=== PATIENT | female | born 1970 | race Caucasian/White ===

== ENCOUNTER 2016-11-08 15:45 | Emergency (ER) | payer MEDICAID ==
[~2016-11-08] VITALS: Ht 157.5 cm; Wt 52.0 kg
[~2016-11-08 15:45] MED LIST: LOPE2CAP PO; ONDA4TAB8 PO
[2016-11-08 15:48] VITALS: Ht 157.5 cm; Wt 52.0 kg
[2016-11-08] MEDS ORDERED: KETOROLAC 30 MG INJ IM STA (16:50)
[2016-11-08] MEDS ORDERED: CARI350T PO (16:56)
[2016-11-08] MEDS ORDERED: NAPR-260 PO (16:56)
--- NOTE | 2016-11-08 18:03 | ERD ---
ER Documentation Chief Complaint Date/Time DATE: 11/08/16 TIME: 18:01 Chief Complaint Complains of back pain since last night HPI 46-year-old woman complaining of severe low back pain bilaterally worse on the left compared to the right, pain on the left radiates down her left buttock and leg. She states she has had these symptoms for about 20 years and was once told she has sciatica. She has been using ibuprofen without relief. Patient denies history of cancer or recent weight loss, no tuberculosis or chronic glucocorticoid use, no chest pain or shortness of breath, no headache or blurry vision. Patient denies dysuria, fevers or chills, or abdominal pain. ROS All systems reviewed and are negative except as per history of present illness. Medications Home Meds Active Scripts Naproxen* (Naprosyn*) 500 Mg Tablet, 500 MG PO BID Y for PAIN AND/OR INFLAMMATION, #30 TAB Prov:RHONDA GILLIS MD 11/08/16 Carisoprodol* (Soma*) 350 Mg Tablet, 350 MG PO TID Y for MUSCLE SPASMS, #15 TAB Prov:RHONDA GILLIS MD 11/08/16 Loperamide Hcl* (Imodium*) 2 Mg Capsule, 2 MG PO .AFTER EA LOOSE BM Y for DIARRHEA, #10 TAB Prov:Anabel Hernandes PA-C 08/12/16 Ondansetron Hcl* (Zofran*) 4 Mg Tablet, 4 MG PO Q6H for NAUSEA AND/OR VOMITING, #30 TAB Prov:Anabel Hernandes PA-C 08/12/16 Allergies Allergies: Coded Allergies: No Known Allergy (Unverified , 08/12/16) PMhx/Soc Chronic back pain Medical and Surgical Hx: pt denies Medical Hx, pt denies Surgical Hx History of Surgery: No Anesthesia Reaction: No Hx Neurological Disorder: No Hx Respiratory Disorders: No Hx Cardiac Disorders: No Hx Psychiatric Problems: No Hx Miscellaneous Medical Probl: No Hx Alcohol Use: No Hx Substance Use: No Hx Tobacco Use: No FmHx Family History: No diabetes Physical Exam Vitals Vital Signs Date Time Temp Pulse Resp B/P Pulse Ox O2 Delivery O2 Flow Rate FiO2 11/08/16 15:48 98.3 82 20 101/55 98 Physical Exam GENERAL: Well-developed, well-nourished, well-hydrated, in no apparent distress , looks nontoxic in appearance HEENT: Moist mucous membranes, pink conjunctiva, no cervical spine tenderness or step-off deformities, no goiter, no jaundice or icterus, extraocular movements intact without pain. No submandibular induration, and no pharyngeal erythema NEURO: Alert and oriented 3, cranial nerves II through XII intact bilaterally, pupils equal round reactive to light, no focal deficits or facial asymmetry, sensation intact distally Strength 5/5 in upper and lower extremities bilaterally CARDIAC: Regular rate and rhythm, no murmurs rubs or gallops LUNGS: Clear bilaterally no wheezing crackles or stridor ABDOMEN: Soft nontender, no guarding, no rigidity, no rebound, no psoas sign no obturator sign. Normoactive bowel sounds SKIN: Warm and dry to touch, no abrasions, contusions, or hematomas, no lacerations, no ecchymosis, no target lesions, and without ulcers EXTREMITIES: No clubbing cyanosis or edema, calves are bilaterally symmetrical, no Homans sign, no popliteal cord sign. Distal pulses equal and bilateral PSYCH: Normal affect without agitation or irritability Results 24 hrs Current Medications Medications (Trade) Dose Ordered Sig/Guille Route PRN Reason Start Time Stop Time Status Last Admin Dose Admin Ketorolac Tromethamine (Toradol) 30 mg ONCE STAT IM 11/08/16 16:50 11/08/16 16:52 DC 11/08/16 17:03 Procedures/MDM I administered Toradol 30 mg intramuscular injection with good relief. X-ray LS-Spine 3V Interpreted by me: Bones: No fracture Joints: No dislocation Foreign body: None Differential diagnoses considered, included but not limited to acute coronary syndrome, pulmonary embolism, aortic dissection, abdominal aortic aneurysm, sepsis, stroke, meningitis, encephalitis, pneumonia, appendicitis, cholecystitis , bowel obstruction, pyelonephritis, nephrolithiasis, cystitis, as well as metabolic, hematologic, and electrolyte abnormalities. As well as abscess, cellulitis, fractures, and dislocations. Patient feels much better at this time, and vital signs are normal, symptoms have improved. I did give strict instructions to return to the ED if symptoms continue or worsen, patient will otherwise follow-up with primary care physician. Patient understood instructions and agreed to plan. Departure Diagnosis: Primary Impression: Back pain Back pain location: low back pain Chronicity: acute Back pain laterality: bilateral Sciatica presence: with sciatica Sciatica laterality: sciatica of left side Qualified Code: M54.42 - Acute bilateral low back pain with left- sided sciatica Condition: Good Patient Instructions: Back Pain W/ Sciatica RHONDA GILLIS MD Nov 08, 2016 18:03
--- NOTE | 2016-11-08 18:15 | RADRPT ---
PROCEDURE: XR Lumbar Spine. CLINICAL INDICATION: Lumbar spine pain. TECHNIQUE: AP, lateral, and cone-down lateral view of the lumbar spine were obtained. COMPARISON: No prior studies are available for comparison. FINDINGS: The alignment of the lumbar spine is within normal limits. The vertebral body heights and marrow de nsity are normal in appearance. There is preservation of the intervertebral disc spaces. There is mild facet spondylosis at L5-S1. The neural foramina appear patent. The paraspinal soft tissues un remarkable. The posterior elements are unremarkable. IMPRESSION: 1. Mild facet spondylosis at L5-S1 without significant neural foraminal narrowing. 2. Otherwise, normal radiographs of the lumbar spine. No evidence of fracture or significant degen erative disc disease. RPTAT: DD .Dustin Martino MD, Date Time Electronically viewed and signed by .Dustin Martino MD, on 11/08/2016 18:15 .S/
[2016-11-08 18:18] VITALS: TEMP 98.2
== END 2016-11-08 18:19 | disposition home or self-care (01) ==
LOC: FTE 15:45
DX: M54.42 Lumbago with sciatica, left side (principal); M54.41 Lumbago with sciatica, right side
CPT/HCPCS: 72100; 96372; J1885; Z7502

== ENCOUNTER 2017-03-28 15:14 | Emergency (ER) | payer MEDICAID, OTHER ==
[~2017-03-28] VITALS: Ht 157.5 cm; Wt 52.5 kg
[~2017-03-28 15:14] MED LIST changes: +CARI350T PO; +NAPR-260 PO
[2017-03-28 15:17] VITALS: Ht 157.5 cm; Wt 52.5 kg
[2017-03-28] MEDS ORDERED: KETOROLAC 60 MG INJ IM STA (16:20)
[2017-03-28] MEDS ORDERED: MECLIZINE 12.5 MG TAB PO ONE (16:30)
--- NOTE | 2017-03-28 17:06 | RADRPT ---
PROCEDURE: CT Brain without contrast. CLINICAL INDICATION: Headache. TECHNIQUE: A CT of the brain was performed on a [employer] 64-slice CT scanner utilizing axial imaging from the skull base through the vertex without IV contrast. Multiplanar reformatted images were made. Images were reviewed on a PACS workstation. The CTDIvol is 44.11 mGy and the DLP is 630 .2 mGycm. One or the following dose reduction techniques were used: -Automated exposure control. -Adjustment of the mA and/or KV according to patient's size. -Use of iterative reconstruction technique. COMPARISON: None FINDINGS: There is no intracranial hemorrhage, mass effect, or midline shift. No extra-axial fluid collection is seen. The ventricles and sulci are normal in size and configuration. The density of the brain is normal, and the chand white matter differentiation appears well-preserved. The visualized paranasal sinuses and osseous structures are grossly unremarkable. IMPRESSION: 1. No acute intracranial process identified. RPTAT: [facility] Physician Antonio Date Time Electronically viewed and signed by Physician Antonio on 03/28/2017 17:05 KEISHA/
[2017-03-28] MEDS ORDERED: IBUP-1542 PO (17:31)
[2017-03-28] MEDS ORDERED: MECL12.574 PO (17:35)
[2017-03-28] MEDS ORDERED: ONDA4TAB14 PO (17:35)
--- NOTE | 2017-03-28 18:14 | ERD ---
ER Documentation Chief Complaint Date/Time DATE: 03/28/17 TIME: 17:59 Chief Complaint Complains of a headche x 3 days HPI 47-year-old female complaining a headache since midnight. Pain is all over her head. Patient is unable to describe the quality of the pain. Patient reports feeling weak and dizzy. Described dizziness as a spinning-like sensation, worse with head movement. Denies fever or chills. Denies photophobia or phonophobia. Denies blurry vision or tinnitus. Denies head trauma. Denies muscle weakness or numbness. ROS All systems reviewed and are negative except as per history of present illness. Medications Home Meds Active Scripts Ondansetron (Ondansetron Odt) 4 Mg Tab.rapdis, 4 MG PO Q6H Y for NAUSEA AND/OR VOMITING, #10 TAB Prov:SAMI CUNNINGHAM NP 03/28/17 Meclizine Hcl* (Antivert*) 12.5 Mg Tab, 12.5 MG PO Q6H Y for DIZZINESS, #20 TAB Prov:SAMI CUNNINGHAM NP 03/28/17 Ibuprofen* (Motrin*) 600 Mg Tab, 600 MG PO Q6H Y for PAIN AND OR ELEVATED TEMP, #30 TAB Prov:SAMI CUNNINGHAM NP 03/28/17 Naproxen* (Naprosyn*) 500 Mg Tablet, 500 MG PO BID Y for PAIN AND/OR INFLAMMATION, #30 TAB Prov:RHONDA GILLIS MD 11/08/16 Carisoprodol* (Soma*) 350 Mg Tablet, 350 MG PO TID Y for MUSCLE SPASMS, #15 TAB Prov:RHONDA GILLIS MD 11/08/16 Loperamide Hcl* (Imodium*) 2 Mg Capsule, 2 MG PO .AFTER EA LOOSE BM Y for DIARRHEA, #10 TAB Prov:Anabel Hernandes PA-C 08/12/16 Ondansetron Hcl* (Zofran*) 4 Mg Tablet, 4 MG PO Q6H for NAUSEA AND/OR VOMITING, #30 TAB Prov:Anabel Hernandes PA-C 08/12/16 Allergies Allergies: Coded Allergies: No Known Allergy (Unverified , 08/12/16) PMhx/Soc History of Surgery: Yes (APPY, CSECTION X3) Anesthesia Reaction: No Hx Neurological Disorder: No Hx Respiratory Disorders: No Hx Cardiac Disorders: No Hx Psychiatric Problems: No Hx Miscellaneous Medical Probl: No Hx Alcohol Use: No Hx Substance Use: No Hx Tobacco Use: No Smoking Status: Never smoker Physical Exam Vitals Vital Signs Date Time Temp Pulse Resp B/P Pulse Ox O2 Delivery O2 Flow Rate FiO2 03/28/17 15:17 98.3 87 20 113/73 97 Physical Exam General: Well-developed, well-nourished, conscious and coherent, in no distress Skin: Warm and dry without rash, good texture and turgor Head: Normocephalic without evidence of trauma Eyes: Sclera and conjunctivae normal; pupils equal, round, and reactive to light; extraocular movements are intact. Horizontal nystagmus noted to the right. Ears: Canals are patent. Tympanic membranes are clear Nose/Face: Without rhinorrhea. Sinuses nontender to percussion. Mouth/throat: Mucous membranes are moist. Posterior pharynx clear without erythema or exudates Neck: Supple without meningismus or adenopathy. Carotids are equal. Trachea midline. No bruits or JVD. Bilateral sternocleidomastoid and upper trapezius muscles tightness noted. Chest: Normal AP diameter. Good expansion without retractions. Nontender. Lungs are clear to auscultate bilaterally with good tidal volume Heart: Regular rate and rhythm. No murmur, rub, or gallops heard Extremities: Full range of motion. Good strength bilaterally. No clubbing, cyanosis, or edema. Peripheral pulses are intact. Sensation intact Neuro: Alert and oriented 4; GCS 15. Cranial nerves II - XII intact. Motor sensory exam nonfocal. Moves all extremities. Deep tendon reflexes 2+ in all extremities. Speech clear. No pronator drift. Gait slightly ataxic. Results 24 hrs Current Medications Medications (Trade) Dose Ordered Sig/Guille Route PRN Reason Start Time Stop Time Status Last Admin Dose Admin Meclizine HCl (Antivert) 12.5 mg ONCE ONCE PO 03/28/17 16:30 03/28/17 16:31 DC 03/28/17 16:30 Ketorolac Tromethamine (Toradol) 60 mg ONCE STAT IM 03/28/17 16:20 03/28/17 16:22 DC 03/28/17 16:32 PROCEDURE: CT Brain without contrast. CLINICAL INDICATION: Headache. TECHNIQUE: A CT of the brain was performed on a [employer] 64-slice CT scanner utilizing axial imaging from the skull base through the vertex without IV contrast. Multiplanar reformatted images were made. Images were reviewed on a PACS workstation. The CTDIvol is 44.11 mGy and the DLP is 630.2 mGycm. One or the following dose reduction techniques were used: -Automated exposure control. -Adjustment of the mA and/or KV according to patient's size. -Use of iterative reconstruction technique. COMPARISON: None FINDINGS: There is no intracranial hemorrhage, mass effect, or midline shift. No extra- axial fluid collection is seen. The ventricles and sulci are normal in size and configuration. The density of the brain is normal, and the chand white matter differentiation appears well-preserved. The visualized paranasal sinuses and osseous structures are grossly unremarkable. IMPRESSION: 1. No acute intracranial process identified. RPTAT: [facility] Physician Antonio Date Time Electronically viewed and signed by Physician Antonio on 03/28/2017 17: 05 JH/ CC: SAMI CUNNINGHAM [employer] Procedures/MDM 47-year-old female presented ED with headache and vertigo. Toradol and meclizine given to the patient in the ED. Patient reports slight improvement in her symptoms after the medications. CT head without IV contrast was obtained, which was unremarkable. I have low suspicion for intracranial hemorrhage or mass, stroke, or vertebral artery dissection. Her headaches likely tension type, and vertigo likely to be benign positional. Patient appears well, stable for discharge and outpatient management. Medical decision making shared with patient and family. Education provided to patient and family. Patient and family expressed understanding of the plan. Medications on discharge: Ibuprofen, meclizine, Zofran. Follow-up: Primary care provider in 2-3 days or return to ED if worse. The case was reviewed and discussed with Dr. [place], who agrees with the plan of care including labs, treatment, and advanced imaging as appropriate. Departure Diagnosis: Primary Impression: Headache Additional Impression: Vertigo Condition: Stable Patient Instructions: Self-Care for Headaches, Vertigo, Unspecified Additional Instructions: Llame al doctor MAANA y coretta kavin JORGE PARA DENTRO DE 2-3 DO.Dgale a la secretaria que nosotros le instruimos hacer esta jorge.Avise o llame si osullivan condicin se empeora antes de la jorge. Regresa aqui si peor o no mejor. SAMI CUNNINGHAM. LIZETH Mar 28, 2017 18:10
== END 2017-03-28 17:58 | disposition home or self-care (01) ==
LOC: FTE 15:14
DX: R51 Headache (principal); R42 Dizziness and giddiness; R40.2412 Glasgow coma scale score 13-15, at arrival to emergency department
CPT/HCPCS: 70450; J1885; Z7610; 96372

== ENCOUNTER 2018-01-15 10:47 | Emergency (ER) | END 2018-01-15 14:15 | disposition home or self-care (01) ==

== ENCOUNTER 2018-06-15 10:56 | Emergency (ER) | END 2018-06-15 12:07 | disposition home or self-care (01) ==